=== PATIENT | female | born 1975 | race Two or more races ===

== ENCOUNTER 2023-10-22 14:22 | Emergency (ER) | payer MEDICAID, OTHER ==
[~2023-10-22] VITALS: Ht 149.9 cm; Wt 74.5 kg
[2023-10-22 15:54] LABS: Urine Bacteria NONE SEEN /hpf (None Seen); Urine Blood 1+ /uL (Negative); Urine Clarity HAZY (Clear); Urine Color Yellow (Yellow); Urine Mucus FEW (None Seen); Urine Protein, UAD TRACE (Negative); Urine Specific Gravity 1.027 (1.001-1.035); Urine Urobilinogen Normal (Negative); Urine WBC 5 /hpf (0 - 5)
[2023-10-22] MEDS ORDERED: SULF800T23 PO (21:58)
[2023-10-22] MEDS ORDERED: ACET500T58 PO (21:58)
[2023-10-22 22:00] VITALS: BP 123/74; PULSE 89; RESP 16; TEMP 98; O2SAT 97
[2023-10-22] MEDS ORDERED: KETOROLAC TROMETH 60MG/2ML VIAL IM ONE (22:00)
[2023-10-22] MEDS ORDERED: cefTRIAXone SOD 1,000 MG VL IM ONE (22:00)
== END 2023-10-22 22:29 | disposition home or self-care (01) ==
LOC: ER 14:22
DX: N39.0 Urinary tract infection, site not specified (principal); Z98.890 Other specified postprocedural states; Z79.899 Other long term (current) drug therapy
CPT/HCPCS: 81001; 81025; 96372; 99284; J0696; J1885

== ENCOUNTER 2025-04-11 17:05 | Emergency (ER) | payer MEDICAID ==
[~2025-04-11] VITALS: Ht 167.6 cm; Wt 71.2 kg
[~2025-04-11 17:05] MED LIST: ACET500T58 PO; SULF800T23 PO
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
[2025-04-11] MEDS ORDERED: IBUP-1455 PO (17:44)
[2025-04-11] MEDS ORDERED: CYCL-837 PO (17:44)
[2025-04-11 22:34] VITALS: BP 110/77; PULSE 85; RESP 16; TEMP 98; O2SAT 99
== END 2025-04-11 22:36 | disposition home or self-care (01) ==
LOC: ER 17:08
DX: S14.5XXA Injury of cervical sympathetic nerves, initial encounter (principal); Z98.890 Other specified postprocedural states; Z79.899 Other long term (current) drug therapy; V89.2XXA Person injured in unspecified motor-vehicle accident, traffic, initial encounter; Y93.89 Activity, other specified; Y92.488 Other paved roadways as the place of occurrence of the external cause; Y99.8 Other external cause status